=== PATIENT | male | born 1985 | race American Indian/Alaskan Native ===

== ENCOUNTER 2017-04-24 11:47 | Emergency (ER) | payer SELFPAY ==
[2017-04-24 11:52] VITALS: BP 106/77
[2017-04-24] MEDS ORDERED: ZOFRAN ODT PO ONE (12:12)
--- NOTE | 2017-04-24 12:16 | Emergency Department Report ---
Chief Complaint: Abdominal Pain Stated Complaint: N/V - HPI History of Present Illness: 31-year-old male presents from home with complaint of epigastric abdominal pain , nausea and vomiting since last night. It has improved slightly and he has been able to keep down a little bit of Gatorade but he still has some nausea and epigastric discomfort. No past medical history. No PCP. He did not take anything for her symptoms prior to presentation. - ROS Review of Systems: Patient is positive for epigastric abdominal pain, nausea, vomiting. Patient is negative for fever, diarrhea, constipation, back pain, chest pain or shortness of breath. - Exam Vital Signs: Vital Signs 04/24/17 11:49 Temperature 98.6 F Pulse Rate 89 Respiratory 16 Rate Blood Pressure 106/77 O2 Sat by Pulse 100 Oximetry Physical Exam: Patient is in no acute distress. Heart and lung sounds normal to auscultation. Mild tenderness to palpation to the epigastric abdomen but otherwise not a toxic or rigid abdomen. Patient is awake and alert and no obvious deficits. MSE screening note: Focused history and physical exam performed. Due to findings the following was ordered: I ordered a CBC, CMP, lipase and urinalysis. I ordered a abdominal x-ray. Patient can stay over on the fast track side. ED Disposition for MSE Condition: Stable
--- NOTE | 2017-04-24 12:25 | Emergency Department Report ---
HPI - General Chief Complaint: Abdominal Pain Time Seen by Provider: 04/24/17 12:21 - HPI HPI: 31-year-old -Welsh male presents to the emergency department from home with complaint of some epigastric abdominal pain, nausea and vomiting that began last night. He says that he was able to keep down some Gatorade and some crackers this morning and the abdominal pain is currently 3 out of 10 at present. He denies any fever, diarrhea, constipation, back pain, dysuria or any penile discharge. He denies any past medical history. He does not have a primary care physician. Other than eating and/or drinking he did not take anything for her symptoms prior to presentation. No recent travel or sick contacts at home. ED Past Medical Hx - Past Medical History Previous Medical History?: No - Surgical History Past Surgical History?: No - Social History Smoking Status: Never Smoker Substance Use Type: None - Medications Home Medications: Home Medications Medication Instructions Recorded Confirmed Last Taken Type Ondansetron [Zofran Odt] 4 mg PO Q8H PRN #10 tab.rapdis 04/24/17 Unknown Rx ED Review of Systems ROS: Stated complaint: N/V Other details as noted in HPI Comment: All other systems reviewed and negative Constitutional: denies: chills, fever Eyes: denies: eye pain, eye discharge, vision change ENT: denies: ear pain, throat pain Respiratory: denies: cough, shortness of breath, wheezing Cardiovascular: denies: chest pain, palpitations Gastrointestinal: abdominal pain, nausea, vomiting Genitourinary: denies: urgency, dysuria Musculoskeletal: denies: back pain, joint swelling, arthralgia Skin: denies: rash, lesions Neurological: denies: headache, weakness, paresthesias Physical Exam - Physical Exam Vital Signs: Vital Signs 04/24/17 11:49 Temperature 98.6 F Pulse Rate 89 Respiratory 16 Rate Blood Pressure 106/77 O2 Sat by Pulse 100 Oximetry Physical Exam: GENERAL: The patient is well-developed well-nourished. HENT: Normocephalic. Atraumatic. Patient has moist mucous membranes. EYES: Extraocular motions are intact. Pupils equal reactive to light bilaterally. NECK: Supple. Trachea is midline. CHEST/LUNGS: Clear to auscultation. There is no respiratory distress noted. HEART/CARDIOVASCULAR: Regular. There is no tachycardia. There is no murmur. ABDOMEN: Abdomen is soft. Mild epigastric tenderness to palpation. No guarding or rebound tenderness. Patient has normal bowel sounds. There is no abdominal distention. SKIN: Skin is warm and dry. NEURO: The patient is awake, alert, and oriented. The patient is cooperative. The patient has no focal neurologic deficits. The patient has normal speech and gait. MUSCULOSKELETAL: There is no tenderness or deformity. There is no limitation range of motion. There is no evidence of acute injury. ED Course Vital Signs 04/24/17 11:49 Temperature 98.6 F Pulse Rate 89 Respiratory 16 Rate Blood Pressure 106/77 O2 Sat by Pulse 100 Oximetry ED Medical Decision Making - Medical Decision Making The patient refuses any abdominal x-ray or lab work. He says he came just for something for nausea. He has the capacity to make medical decisions for himself. Vital signs stable. He does not appear in any acute distress. Despite the mild epigastric tenderness he does not appear to have a toxic or rigid abdomen. He has already been able to keep down a little bit of fluid and some crackers. He was given a Zofran ODT and will be given a prescription for this as well. He will get a referral for primary care clinics in the area. He has been encouraged to return with any worsening of symptoms or any acute distress. - Differential Diagnosis food poisoning, viral syndrome, gastritis, colitis Critical Care Time: No Critical care attestation.: If time is entered above; I have spent that time in minutes in the direct care of this critically ill patient, excluding procedure time. ED Disposition Clinical Impression: Epigastric abdominal pain Nausea and vomiting Qualifiers: Vomiting type: unspecified Vomiting Intractability: non-intractable Qualified Code(s): R11.2 - Nausea with vomiting, unspecified Disposition: DC-01 TO HOME OR SELFCARE Is pt being admited?: No Condition: Stable Instructions: Acute Nausea and Vomiting (ED), Abdominal Pain (ED) Additional Instructions: Please follow up with a primary care physician in the next few days. Increase your oral rehydration. Return to the emergency Department with any worsening of your symptoms or any acute distress. Prescriptions: Ondansetron [Zofran Odt] 4 mg PO Q8H PRN #10 tab.rapdis PRN Reason: Nausea Referrals: [facility] [Outside] - 3-5 Days [facility] [Outside] - 3-5 Days [facility] [Outside] - 3-5 Days [facility] [Outside] - 3-5 Days Time of Disposition: 12:24
== END 2017-04-24 12:40 | disposition home or self-care (01) ==
LOC: ED 11:47
DX: R10.13 Epigastric pain (principal); R11.2 Nausea with vomiting, unspecified
CPT/HCPCS: 99282; Q0162

== ENCOUNTER 2019-06-14 09:43 | Emergency (ER) | payer SELFPAY ==
[2019-06-14 09:56] VITALS: BP 105/72
--- NOTE | 2019-06-14 10:53 | Emergency Department Report ---
Chief Complaint: Medical Clearance Stated Complaint: COUGH/DIAHHREA/COVID EXPOSURE Time Seen by Provider: 06/14/19 10:48 - HPI History of Present Illness: 33-year-old -[place]inames[place] male presents to the emergency room stating he has a slight cough. Patient states that he was around a person that tested positive for the virus and then another that had all had symptoms. Patient denies any shortness of breath no fever no nausea no vomiting. Patient denies any medical history. Takes no medications on a daily basis and has no known drug allergies - Exam Vital Signs: Vital Signs 06/14/19 09:52 Temperature 97.8 F Pulse Rate 68 Respiratory 20 Rate Blood Pressure 105/72 O2 Sat by Pulse 100 Oximetry Physical Exam: Gen: alert oriented NAD Cardic: regular rate and rhythm no murmurs appreciated Resp: Clear to auscultation bilateral no wheezing no rales or rhonchi. Abdomen: Soft nontender nondistended normal bowel sounds. Mini neuro: Ambulating without difficulties MSE screening note: Focused history and physical exam performed. Due to findings the following was ordered: 33-year-old -[place] male presents to the emergency room stating he has a slight cough. Patient states that he was around a person that tested positive for the virus and then another that had all had symptoms. Patient denies any shortness of breath no fever no nausea no vomiting. Patient denies any medical history. Takes no medications on a daily basis and has no known drug allergies. Discussed with patient that we recommend a 14-day quarantine. Are also discussed with patient that he needs to follow-up with a primary care provider after his 14 days quarantine to see if he is able to return back to work. I also discussed with patient to return back to the emergency room if he starts to have any shortness of breath fever worsening cough vomiting inability to hold down food. Patient verbalized understanding. ED Disposition for MSE Clinical Impression: Cough Disposition: Z-07 MED SCREENING EXAM-LEFT Is pt being admited?: No Does the pt Need Aspirin: No Condition: Stable Additional Instructions: Please place yourself on a 14-day quarantine. You can take [id number] cough medication if needed. 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 I also recommend for you to return back to the emergency room with any worsening symptoms such as shortness of breath fever cough that is not relieved by [id number] cough medication decreased appetite nausea vom iting. Referrals: PRIMARY CARE, [Primary Care Provider] - 3-5 Days LISETH CONTRERAS MD [Staff Physician] - 3-5 Days [facility] [Provider Group] - 3-5 Days Forms: Work/School Release Form(ED)
== END 2019-06-14 11:18 | disposition left against medical advice (07) ==
LOC: ED 09:43
DX: R05 Cough (principal)
CPT/HCPCS: 99282